=== PATIENT | female | born 2000 | race Caucasian/White ===

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

== ENCOUNTER 2021-09-24 11:10 | Outpatient (CLI) | payer MEDICAID, OTHER ==
[2021-09-24 11:33] VITALS: BP 96/54
[2021-09-24] MEDS ORDERED: LACTATED RINGERS 500 ML IV ONE (12:00)
[2021-09-24 12:52] LABS: Bacteria,Urine 3+ /HPF (Negative); Bilirubin,Urine NEG (Negative); Blood,Urine NEG (Negative); Color,Urine Yellow (Yellow); Mucus,Urine 1+ /HPF; Protein,Urine <15 mg/dL mg/dL (Negative); Urobilinogen,Urine < 2.0 mg/dL (<2.0)
[2021-09-24] MEDS ORDERED: ACETAMINOPHEN 325 MG TAB ONE (13:32)
[2021-09-24] MEDS ORDERED: ACETAMINOPHEN 325 MG/10.15 ML ORAL LIQD UNIT DOSE PO NR (14:00)
== END 2021-09-24 13:53 | disposition home or self-care (01) ==
LOC: TRG 11:10 → APU 11:11 → TRG 13:53
PROVIDERS: ATTEND Obstetrics & Gynecology
DX: Z34.93 Encounter for supervision of normal pregnancy, unspecified, third trimester (principal); Z3A.30 30 weeks gestation of pregnancy
CPT/HCPCS: 59025; 81001

== ENCOUNTER 2021-10-02 13:32 | Outpatient (CLI) | payer SELFPAY ==
[2021-10-02 13:56] VITALS: BP 105/62
[2021-10-02] MEDS ORDERED: LACTATED RINGERS 500 ML IV ONE (14:08)
[2021-10-02 15:06] LABS: Bacteria,Urine 4+ /HPF (Negative); Mucus,Urine 2+ /HPF
[2021-10-02 15:08] LABS: Color,Urine Straw (Yellow)
[2021-10-02 15:11] LABS: Bilirubin,Urine Negative (Negative); Blood,Urine Negative (Negative)
[2021-10-02 15:12] LABS: Urobilinogen,Urine < 2.0 mg/dL (<2.0)
--- NOTE | 2021-10-02 16:05 | Ultrasound Report ---
ULTRASOUND BIOPHYSICAL PROFILE INDICATION: DECREASED MOVEMENT, BACK PAIN. SCORE 7.. COMPARISON: None available. FINDINGS: breathing movement = 2 Gross body movement = 2 tone = 2 Qualitative amniotic fluid volume = 2 Total biophysical score = 02/17 Amniotic fluid index is 13.8 cm. Presentation is Cephalic. heart rate is 125 beats per minute. IMPRESSION: biophysical profile = 02/17 Signer Name: Trevin Crandall MD Signed: 10/02/2021 4:00 PM Workstation Name: [id number]
[2021-10-02] MEDS ORDERED: LIDOCAINE-MPF (1%) 10 MG/1 ML VIAL 5 ML INFILTRATI ONE (17:00)
== END 2021-10-02 17:07 | disposition home or self-care (01) ==
LOC: TRG 13:32 → APU 13:34 → TRG 17:07
PROVIDERS: ATTEND Obstetrics & Gynecology
DX: O36.8130 Decreased fetal movements, third trimester, not applicable or unspecified (principal); Z3A.31 31 weeks gestation of pregnancy
CPT/HCPCS: 59025; 76815; 76819; 81001; 87086; J0696

== ENCOUNTER 2021-10-08 14:11 | Outpatient (CLI) | payer SELFPAY ==
[2021-10-08] MEDS ORDERED: LACTATED RINGERS 1,000 ML IV ONE (14:30)
[2021-10-08 14:40] VITALS: BP 109/62
[2021-10-08 15:06] LABS: Bacteria,Urine 3+ /HPF (Negative); Bilirubin,Urine NEG (Negative); Blood,Urine NEG (Negative); Color,Urine Yellow (Yellow); Mucus,Urine 2+ /HPF; Urobilinogen,Urine < 2.0 mg/dL (<2.0)
== END 2021-10-08 17:34 | disposition home or self-care (01) ==
LOC: TRG 14:11 → APU 14:11 → TRG 17:34
PROVIDERS: ATTEND Obstetrics & Gynecology
DX: Z34.93 Encounter for supervision of normal pregnancy, unspecified, third trimester (principal); Z3A.32 32 weeks gestation of pregnancy
CPT/HCPCS: 59025; 81001; 87086; 96360; 96365; J0690; J7120

== ENCOUNTER 2021-11-02 19:20 | Outpatient (CLI) | payer SELFPAY ==
[2021-11-02] MEDS ORDERED: LACTATED RINGERS 500 ML IV ONE (19:38)
[2021-11-02 19:54] VITALS: BP 101/58
[2021-11-02] MEDS ORDERED: LACTATED RINGERS 1,000 ML IV ONE (20:16)
[2021-11-02 20:38] LABS: Bacteria,Urine 1+ /HPF (Negative); Bilirubin,Urine NEG (Negative); Blood,Urine NEG (Negative); Color,Urine Yellow (Yellow); Mucus,Urine 3+ /HPF; Urobilinogen,Urine < 2.0 mg/dL (<2.0)
== END 2021-11-02 21:12 | disposition home or self-care (01) ==
LOC: TRG 19:20 → APU 19:20 → TRG 21:12
PROVIDERS: ATTEND Obstetrics & Gynecology
DX: O26.893 Other specified pregnancy related conditions, third trimester (principal); Z3A.36 36 weeks gestation of pregnancy; R10.9 Unspecified abdominal pain
CPT/HCPCS: 59025; 81001

== ENCOUNTER 2021-11-17 12:02 | Outpatient (CLI) | payer SELFPAY ==
[2021-11-17 12:35] VITALS: BP 105/65
--- NOTE | 2021-11-17 17:09 | Ultrasound Report ---
US OB limited, US OB BPP wo non-stress INDICATION: YEFRI. TECHNIQUE: Transabdominal. COMPARISON: None available. FINDINGS: There is a single intrauterine . Heart Rate: 132 beats per minute. Position: cephalic. Amniotic Fluid Volume: normal Amniotic Fluid Index (YERFI) in cm (if calculated): 7.3. Biophysical Profile: breathing movements: 0 movements:2 posture and tone:2 Qualitative amniotic fluid volume: 2 IMPRESSION: 1. Amniotic fluid is normal. 2. Biophysical profile . Signer Name: Boris Gardiner MD Signed: 11/17/2021 5:05 PM Workstation Name: [id number]
--- NOTE | 2021-11-17 17:09 | Ultrasound Report ---
US OB limited, US OB BPP wo non-stress INDICATION: YEFRI. TECHNIQUE: Transabdominal. COMPARISON: None available. FINDINGS: There is a single intrauterine . Heart Rate: 132 beats per minute. Position: cephalic. Amniotic Fluid Volume: normal Amniotic Fluid Index (YEFRI) in cm (if calculated): 7.3. Biophysical Profile: breathing movements: 0 movements:2 posture and tone:2 Qualitative amniotic fluid volume: 2 IMPRESSION: 1. Amniotic fluid is normal. 2. Biophysical profile . Signer Name: Boris Gardiner MD Signed: 11/17/2021 5:05 PM Workstation Name: [id number]
== END 2021-11-17 17:33 | disposition home or self-care (01) ==
LOC: APU 12:02 → TRG 12:02
PROVIDERS: ATTEND Obstetrics & Gynecology
DX: Z34.93 Encounter for supervision of normal pregnancy, unspecified, third trimester (principal); Z3A.38 38 weeks gestation of pregnancy
CPT/HCPCS: 36415; 59025; 76815; 76819; 84112

== ENCOUNTER 2021-11-20 08:38 | Outpatient (CLI) | payer SELFPAY ==
[2021-11-20 09:12] VITALS: BP 103/63
[2021-11-20 10:28] LABS: Bilirubin,Urine NEG (Negative); Blood,Urine SM (Negative); Color,Urine Yellow (Yellow); Mucus,Urine 1+ /HPF; Protein,Urine <15 mg/dL mg/dL (Negative); Urobilinogen,Urine < 2.0 mg/dL (<2.0)
--- NOTE | 2021-11-20 10:28 | Ultrasound Report ---
ULTRASOUND BIOPHYSICAL PROFILE ULTRASOUND OB LIMITED INDICATION: well being TECHNIQUE: Transabdominal ultrasound imaging. COMPARISON: 11/17/2021 FINDINGS: breathing movement = 2 Gross body movement = 2 tone = 2 Qualitative amniotic fluid volume = 2 Total biophysical score = 8/8 Amniotic fluid index is 8.1 cm. Presentation is cephalic. heart rate is 133 beats per minute. IMPRESSION: biophysical profile equals /8. Signer Name: Destin Knott Jr, MD Signed: 11/20/2021 10:24 AM Workstation Name: [id number]
== END 2021-11-20 10:39 | disposition home or self-care (01) ==
LOC: TRG 08:38 → APU 08:41 → TRG 10:39
PROVIDERS: ATTEND Obstetrics & Gynecology
DX: Z34.93 Encounter for supervision of normal pregnancy, unspecified, third trimester (principal); Z3A.38 38 weeks gestation of pregnancy
CPT/HCPCS: 76815; 76819; 81001; 87086

== ENCOUNTER 2021-11-23 23:29 | Inpatient (IN) | payer SELFPAY ==
[2021-11-24] MEDS ORDERED: LACTATED RINGERS 1,000 ML ONE (00:59)
[2021-11-24] MEDS ORDERED: LIDOCAINE (2%) 20 MG/1 ML VIAL 20 ML MDV INFILTRATI ONE ×2 (02:22→05:29)
[2021-11-24] MEDS ORDERED: MINERAL OIL 30 ML ORAL LIQD PO PRN ×2 (02:22→05:29)
[2021-11-24] MEDS ORDERED: CARBOPROST TROMETHAMINE 250 MCG/1 ML INJ IM PRN ×2 (02:22→05:29)
[2021-11-24] MEDS ORDERED: TERBUTALINE 1 MG/1 ML INJ SUB-Q PRN ×2 (02:22→05:29)
[2021-11-24] MEDS ORDERED: METHYLERGONOVINE MALEATE 0.2 MG/ML VIAL IM PRN ×2 (02:22→05:29)
[2021-11-24] MEDS ORDERED: miSOPROStol 200 MCG TAB PR PRN ×2 (02:22→05:29)
[2021-11-24] MEDS ORDERED: LOPERAMIDE 2 MG CAP PO PRN ×2 (02:22→05:29)
[2021-11-24] MEDS ORDERED: OXYTOCIN 10 UNIT/1 ML INJ IM PRN ×2 (02:22→05:29)
[2021-11-24] MEDS ORDERED: ePHEDrine SULFATE 50 MG/1 ML INJ IV PRN ×2 (02:22→09:06)
[2021-11-24] MEDS ORDERED: OXYTOCIN DRIP 30 UNITS/500 ML BAG IV SCH ×2 (03:00→06:00)
[2021-11-24 03:12] LABS: Hematocrit 35.1 % (30.3-42.9); Hemoglobin 10.9 gm/dl (10.1-14.3); Mean Corpuscular HGB Conc 31 % (30-34); Mean Corpuscular Volume 89 fl (79-97); Platelet Count 267 K/mm3 (140-440); Red Blood Count 3.95 M/mm3 (3.65-5.03); Red Cell Distribution Width 16.7 % (13.2-15.2)
[2021-11-24] MEDS: LACTATED RINGERS 1,000 ML IV SCH ×2 (03:30→11:05)
[2021-11-24] MEDS ORDERED: ACETAMINOPHEN 325 MG TAB PO PRN (05:29)
[2021-11-24] MEDS ORDERED: BUTORPHANOL 2 MG/1 ML INJ IV PRN ×2 (05:29→08:35)
[2021-11-24] MEDS ORDERED: LACTATED RINGERS 1,000 ML IV SCH (05:30)
[2021-11-24] MEDS: fentaNYL 100 MCG/2 ML INJ IV PRN ×2 (05:44→08:05)
[2021-11-24 05:58] LABS: Basophils % (Manual) 0 % (0.0-1.8); Total Cells Counted 100
[2021-11-24 05:59] LABS: Platelet Estimate Consistent w Auto; RBC Morphology Normal
--- NOTE | 2021-11-24 08:29 | History and Physical Report ---
History of Present Illness Date of examination: 11/24/21 Date of admission: 11/23/21 23:48 Chief complaint: Labor History of present illness: 21 year old was admitted in active labor. Patient reports leaking of clear fluid from vagina since shortly before midnight last night. Patient received care at [facility] and records are available. LMP 02/22/21. EDC 11/29/21. significant for the following: late transfer of care to [facility] at 33 weeks, UTI (treated). labs are as follows: O+, antibody screen negative, rubella immune, hepatitis B surface antigen negative, HIV negative, RPR negative, gonorrhea negative, chlamydia negative, trichomonas negative, AFP negative, 1 hour sugar test 73, GBS negative. Past History Past Medical History: other (asthma, anemia) Past Surgical History: no surgical history [facility] History: denies: chlamydia, gonorrhea, hepatitis B, hepatitis C, HIV, syphilis, trichomonas Family/Genetic History: hypertension Social history: no significant social history, full code - Obstetrical History Expected Date of Delivery: 11/29/21 Actual Gestation: 39 Week(s) 2 Day(s) : 1 Para: 0 Hx # Term Pregnancies: 0 Number of Pregnancies: 0 Spontaneous Abortions: 0 Induced : 0 Number of Living Children: 0 Medications and Allergies Allergies Allergy/AdvReac Type Severity Reaction Status Date / Time albuterol Allergy Severe Anaphylaxis Verified 11/24/21 01:02 Home Medications Medication Instructions Recorded Confirmed Last Taken Type Ibuprofen [Motrin] 600 mg PO Q8H PRN #20 tablet 08/18/18 Unknown Rx Active Meds: Active Medications Acetaminophen (Acetaminophen 325 Mg Tab) 650 mg PO Q4H PRN PRN Reason: Pain, Mild (1-3) Butorphanol Tartrate (Butorphanol 2 Mg/1 Ml Inj) 1 mg IV Q2H PRN PRN Reason: Pain, Moderate(4-6) LABOR PAIN Carboprost Tromethamine (Carboprost Tromethamine 250 Mcg/1 Ml Inj) 250 mcg IM ONCE PRN PRN Reason: Uterine Bleeding Carboprost Tromethamine (Carboprost Tromethamine 250 Mcg/1 Ml Inj) 250 mcg IM ONCE PRN PRN Reason: Uterine Bleeding Ephedrine Sulfate (Ephedrine Sulfate 50 Mg/1 Ml Inj) 10 mg IV Q2M PRN PRN Reason: Hypotension Fentanyl (Fentanyl 100 Mcg/2 Ml Inj) 100 mcg IV Q2H PRN PRN Reason: Pain,Severe (7-10) LABOR PAIN Last Admin: 11/24/21 08:05 Dose: 100 mcg Oxytocin/Sodium Chloride (Pitocin/Ns 30 Unit/500ml) 30 units in 500 mls @ 2 mls/hr IV TITR AGY; Protocol Last Titration: 11/24/21 08:20 Dose: 6 mls/hr, 6 mls/hr Lactated Ringer's (Lactated Ringers) 1,000 mls @ 125 mls/hr IV DIRECT GAY Last Admin: 11/24/21 03:30 Dose: 125 mls/hr Oxytocin/Sodium Chloride (Pitocin/Ns 30 Unit/500ml) 30 units in 500 mls @ 2 mls/hr IV TITR GAY; Protocol Lactated Ringer's (Lactated Ringers) 1,000 mls @ 125 mls/hr IV DIRECT GAY Loperamide HCl (Loperamide 2 Mg Cap) 2 mg PO ONCE PRN PRN Reason: give with Hemabate Methylergonovine Maleate (Methylergonovine Maleate 0.2 Mg/Ml Vial) 0.2 mg IM ONCE PRN PRN Reason: Uterine Bleeding Mineral Oil (Mineral Oil 30 Ml Oral Liqd) 30 ml PO QHS PRN PRN Reason: Constipation Misoprostol (Misoprostol 200 Mcg Tab) 800 mcg VT ONCE PRN PRN Reason: Uterine Bleeding Oxytocin (Oxytocin 10 Unit/1 Ml Inj) 10 unit IM ONCE PRN PRN Reason: Uterine Bleeding Terbutaline Sulfate (Terbutaline 1 Mg/1 Ml Inj) 0.25 mg SUB-Q ONCE PRN PRN Reason: Hyperstimulation/Hypertonicity Review of Systems All systems: negative (leaking of fluid, contractions) - Vital Signs Vital signs: Vital Signs Pulse Pulse Ox 84 98 11/23/21 23:46 11/23/21 23:46 Temp Pulse Resp BP Pulse Ox 97.8 F 82 16 129/77 97 11/24/21 07:07 11/24/21 08:20 11/24/21 08:05 11/24/21 07:50 11/24/21 08:20 - Physical Exam Abdomen: Positive: normal appearance, soft. Negative: distention, tenderness, guarding, rigidity Genitourinary (Female): Positive: normal external genitalia, normal perenium. Negative: perineal/vulvar lesions Vagina: Positive: other (clear fluid seen leaking from vagina) Uterus: Positive: enlarged. Negative: tender Anus/Rectum: Positive: normal perianal skin - Obstetrical Uterine Contraction Monitor Mode: External Cervical Dilatation: 4 Cervical Effacement Percentage: 90 station: -3 Uterine Contraction Pattern: Regular Uterine Contraction Intensity: Moderate Results Result Diagrams: 11/24/21 01:00 Abnormal lab results 11/24/21 11/24/21 Range/Units 00:12 01:00 WBC 12.0 H (4.5-11.0) K/mm3 RDW 16.7 H (13.2-15.2) % Seg Neuts % (Manual) 71.0 H (40.0-70.0) % Eosinophils % (Manual) 6.0 H (0.0-4.3) % Seg Neutrophils # Man 8.5 H (1.8-7.7) K/mm3 Eosinophils # (Manual) 0.7 H (0.0-0.4) K/mm3 Membranes Rupture Positive A (Negative) All other labs normal. Assessment and Plan A: at 39 weeks, 2 days gestation. Active labor. SROM. GBS negative. P: Continuous EFM. Pitocin augmentation of labor.
[2021-11-24] MEDS ORDERED: NALOXONE 2 MG/2 ML INJ IV PRN (09:06)
--- NOTE | 2021-11-24 09:07 | Anesthesia Consultation ---
Anesthesia Consult and Med Hx Date of service: 11/24/21 - Airway Anesthetic Teeth Evaluation: Good ROM Head & Neck: Adequate Mental/Hyoid Distance: Adequate Mallampati Class: Class II Intubation Access Assessment: Probably Good - Pulmonary Exam CTA: Yes - Cardiac Exam Cardiac Exam: RRR - Pre-Operative Health Status ASA Pre-Surgery Classification: ASA3 Proposed Anesthetic Plan: Epidural - Pulmonary Hx Asthma: Yes - Cardiovascular System Hx Hypertension: No - Central Nervous System Hx Seizures: No Hx Psychiatric Problems: No - Endocrine Hx Renal Disease: No Hx Hypothyroidism: No Hx Hyperthyroidism: No - Hematic Hx Anemia: Yes Hx Sickle Cell Disease: No - Other Systems Hx Alcohol Use: No Hx Obesity: Yes
--- NOTE | 2021-11-24 09:27 | Progress Note ---
Labor Epidural - Labor Epidural Start Time: 09:15 Stop Time: :19 Performed by:: ANGELIQUE STANFORD Procedure: Patient is requesting epidural for labor pain. H&P, and labs reviewed. Procedure explained, questions answered, consent obtained. Patient in sitting position with blood pressure cuff and pulse ox on and working. Timeout performed immediately before start of procedure. Sterile Chloraprep prep/drape. Lidocaine skin wheal at L[3]-L[4]. 17-gauge tuohy epidural needle advanced to [id number] with saline at [7] cm. 25-gauge spinal needle advanced until clear, free-flowing CSF. Intrathecal dexmedetomidine [5] mcg administered and needle removed. Epidural catheter advanced to [12] cm, negative aspiration for blood and csf, negative test dose 3 ml 1.5% lidocaine with epinephrine. Sterile sponge and tegaderm applied, followed by tape reinforcement. Patient tolerated procedure well.
[2021-11-24] MEDS: ePHEDrine SULFATE 50 MG/1 ML INJ IV PRN ×2 (09:38→10:32)
[2021-11-24] MEDS ORDERED: fentaNYL-BUPIV 2 MCG/ML-0.125% 200 MCG/100 ML BAG EPIDURAL SCH (10:00)
[2021-11-24] MEDS ORDERED: WITCH HAZEL/ GLYCERIN PAD TP PRN (15:02)
[2021-11-24] MEDS ORDERED: BENZOCAINE/MENTHOL 20/0.5% TOP SPRAY 56 GM TP PRN (15:02)
[2021-11-24] MEDS ORDERED: MAGNESIUM HYDROXIDE (MOM) ORAL LIQD UDC PO PRN (15:02)
[2021-11-24] MEDS ORDERED: LANOLIN/ZINC/DIMETHICONE (LANSINOH) 7 GM TP PRN ×2 (15:02)
[2021-11-24] MEDS ORDERED: HYDROcodone/ACETAMINOPHEN 5-325 MG TAB PO PRN (15:02)
--- NOTE | 2021-11-24 15:13 | Procedure Note ---
OB Delivery Note - Delivery Date of Delivery: 11/24/21 Surgeon: LAZARUS HENLEY Estimated blood loss: 100cc - Vaginal Delivery presentation: vertex Delivery position: OA Intrapartum events: none Delivery augmentation: pitocin Delivery monitor: external FHT, external uterine Route of delivery: Delivery placenta: spontaneous Delivery cord: 3 umbilical vessels, other (short cord) Delivery laceration: 1st degree Delivery repair: vicryl Anesthesia: epidural Delivery comments: Spontaneous vaginal delivery at 14:24 of liveborn female infant weighing 5 lb. 12 oz. over intact perineum with apgars of 8/9. Epidural anesthesia. was atraumatic; short umbilical cord. Baby was placed on mom's chest immediately after . Spontaneous cry and respirations. Baby suctioned with bulb syringe and dried with warm blankets. 3 vessel cord double clamped and cut; delayed cord clamping. Cord blood obtained. Spontaneous delivery of intact placenta and membr anes at 14:27. Pitocin to IV fluids after delivery of placenta. EBL 100 cc. First degree right labial laceration repaired with 3-0 vicryl. No other lacerations noted. Vaginal sweep negative. Sponge count correct. Mother and baby stable in birthing room.
[2021-11-24] MEDS ORDERED: FERROUS SULFATE 325 MG TAB PO SCH (22:00)
[2021-11-24] MEDS: DOCUSATE SODIUM 100 MG CAP PO SCH (22:18)
[2021-11-24] MEDS: IBUPROFEN 600 MG TAB PO SCH (22:18)
[2021-11-25 04:34] LABS: Hemoglobin 9.6 gm/dl (10.1-14.3)
[2021-11-25] MEDS: IBUPROFEN 600 MG TAB PO SCH ×2 (04:52→13:03)
--- NOTE | 2021-11-25 09:17 | Discharge Summary ---
Providers - Providers Date of Admission: 11/23/21 23:48 Date of discharge: 11/25/21 Attending physician: JOSE BLACK Primary care physician: JOSE BLACK Hospitalization Reason for admission: active labor Delivery: Episiotomy: none Laceration: none Other procedures: none complications: none Discharge diagnosis: IUP at term delivered [place] baby: female Hospital course: Pt presented to [facility] in active labor. She had a w/o pp complications. See H&P, delivery summary, and pp notes. Condition at discharge: Good Disposition: 01 HOME / SELF CARE / HOMELESS Plan - Discharge Medications Prescriptions: Ferrous Sulfate [Feosol 325 MG tab] 325 mg PO QDAY #90 tablet Ibuprofen [Motrin 600 MG tab] 600 mg PO Q8H PRN #20 tablet PRN Reason: Pain - Provider Discharge Summary Additional instructions: [] Smoking cessation referral if applicable(refer to patient education folder for contact #) [] Refer to [facility]'s [facility] Booklet Call your doctor immediately for: * Fever > 100.5 * Heavy vaginal bleeding ( >1 pad per hour) * Severe persistent headache * Shortness of breath * Reddened, hot, painful area to leg or breast * Drainage or odor from incision. * Keep incision clean and dry at all times and follow doctor's instructions regarding bathing/showering - Follow up plan Follow up: JOSE BLACK MD [Primary Care Provider] - 6 Weeks
--- NOTE | 2021-11-25 09:19 | Progress Note ---
Assessment and Plan A: S/P Asymptomatic anemia P: D/c home per pt request Subjective - Subjective Date of service: 11/25/21 Principal diagnosis: s/p Patient reports: appetite normal, voiding normally, pain well controlled, ambul ating normally : doing well, bottle feeding Objective - Vital Signs Latest vital signs: Vital Signs Temp Pulse Resp BP Pulse Ox Pulse Ox 11/25/21 01:17 97.8 F 61 16 110/61 98 11/24/21 21:34 97.9 F 89 16 116/77 98 11/24/21 21:22 97 11/24/21 17:00 98 11/24/21 16:54 98.2 F 96 H 14 113/59 96 11/24/21 15:49 16 11/24/21 15:48 78 98 11/24/21 15:47 80 114/65 11/24/21 15:44 98.2 F 11/24/21 15:43 84 98 11/24/21 15:38 85 98 11/24/21 15:33 83 97 11/24/21 15:32 85 115/67 11/24/21 15:28 91 H 98 11/24/21 15:23 89 98 11/24/21 15:18 90 98 11/24/21 15:17 90 124/75 11/24/21 15:13 96 H 97 11/24/21 15:08 89 98 11/24/21 15:03 100 H 99 11/24/21 14:58 103 H 98 11/24/21 14:53 91 H 99 11/24/21 14:48 103 H 97 11/24/21 14:46 93 H 114/56 11/24/21 14:43 91 H 99 11/24/21 14:38 86 99 11/24/21 14:34 93 H 112/55 11/24/21 14:33 86 99 11/24/21 14:28 102 H 99 11/24/21 14:23 142 H 99 11/24/21 14:18 78 100 11/24/21 14:17 73 94 11/24/21 14:13 82 99 11/24/21 14:08 116 H 100 11/24/21 14:04 116 H 97/63 11/24/21 14:03 116 H 98 11/24/21 13:58 86 99 05 13:53 83 99 05 13:48 91 H 99 11/24/21 13:43 79 98 05 13:38 85 98 05 13:35 85 100/64 05 13:33 88 98 05 13:28 108 H 98 11/24/21 13:23 94 H 97 11/24/21 13:18 101 H 97 11/24/21 13:13 89 98 11/24/21 13:08 97 H 98 05 13:04 82 93/54 05 13:03 82 97 11/24/21 13:02 98.4 F 11/24/21 12:58 80 97 11/24/21 12:53 81 98 11/24/21 12:48 71 98 11/24/21 12:43 77 98 11/24/21 12:38 72 97 11/24/21 12:33 78 93/55 97 11/24/21 12:28 74 98 11/24/21 12:23 77 97 05 12:18 66 98 05 12:13 72 98 05 12:08 71 98 11/24/21 12:03 71 95/54 98 05 11:58 72 98 11/24/21 11:53 71 98 05 11:48 69 98 11/24/21 11:43 70 98 11/24/21 11:38 71 98 11/24/21 11:33 74 92/50 98 05 11:28 69 97 11/24/21 11:23 72 97 05 11:18 76 96 05 11:15 98.4 F 11/24/21 11:13 77 97 05 11:08 79 97 05 11:03 88 91/55 96 05 10:58 71 96 05 10:53 75 96 05 10:48 75 96 05 10:43 85 96 05 10:38 76 96 05 10:33 85 96 05 10:32 103 H 88/50 05 10:30 80 85/49 05 10:29 76 94 05/15 10:28 91 H 75/42 95 0515 10:26 78 84/48 0515 10:24 82 78/46 94 05 10:23 82 95 05 10:22 85 76/46 05 10:20 85 82/48 0515 10:18 90 74/41 95 0515 10:16 81 85/52 05 10:14 83 78/47 05 10:13 86 95 05 10:12 89 75/43 05 10:10 87 81/49 05 10:08 89 78/46 95 05 10:07 88 94 05 10:06 81 89/50 05 10:04 86 81/50 05 10:03 88 95 05 10:02 89 83/52 05 10:00 89 87/54 05 09:58 90 84/53 96 11/24/21 09:56 91 H 86/53 05 09:54 84 91/51 05 09:53 93 H 96 11/24/21 09:52 88 88/54 05 09:50 85 91/55 05 09:48 77 97/57 98 05 09:46 78 99/55 05 09:45 85 103/53 05 09:43 89 98 05 09:38 70 98/58 98 05 09:37 65 94 05 09:36 74 93/50 05 09:34 64 90/51 05 09:33 73 97 0515 09:32 80 86/51 05 09:30 83 90/55 05 09:28 89 96/53 97 11/24/21 09:26 75 99/52 0515 09:24 73 106/58 05 09:23 76 100 0515 09:22 67 112/56 05 09:21 67 114/52 Intake and Output 11/24/21 11/25/21 11/25/21 22:59 06:59 14:59 Intake Total 240 360 Output Total 200 300 Balance 40 60 Intake: Oral 120 Intake, Free Water 120 360 Output: Urine 200 300 Void 200 300 Other: Total, Intake Amount 120 Total, Output Amount 200 300 # Voids Void 1 - Exam Breasts: Present: normal Abdomen: Present: normal appearance, soft, normal bowel sounds Vulva: both: normal Uterus: Present: normal, firm, fundal height below umbilicus Extremities: Present: normal - Labs Labs: Abnormal lab results 11/25/21 Range/Units 03:59 Hgb 9.6 L (10.1-14.3) gm/dl Hct 30.0 L (30.3-42.9) %
[2021-11-25] MEDS ORDERED: FERROUS SULFATE 325 MG TAB PO SCH (10:00)
--- NOTE | 2021-11-25 10:08 | Post Anesthesia Evaluation ---
- Post Anesthesia Evaluation Patient Participated: Yes Airway Patent: Yes Stable Respiratory Function: Yes Nausea/Vomiting: No Temp > 96.8F: Yes Pain Manageable: Yes Adequeate Hydration: Yes Anesthesia Complications: No Block Receding Appropriately: Yes Patient on Ventilator: No
[2021-11-25] MEDS: DOCUSATE SODIUM 100 MG CAP PO SCH (13:03)
[2021-11-25 18:58] VITALS: BP 119/70
== END 2021-11-25 18:33 | disposition home or self-care (01) | DRG 807 ==
LOC: TRG 23:29 → APU 23:30 → TRG 23:48 → OBSVTOIN 23:48 → LD 23:48 → OB 11-24 16:49
PROVIDERS: ADMIT Obstetrics & Gynecology; ATTEND Obstetrics & Gynecology
PROC: 10E0XZZ Delivery of Products of Conception, External Approach (ICD-10-PCS; principal; 2021-11-24)
PROC: 0HQ9XZZ Repair Perineum Skin, External Approach (ICD-10-PCS; 2021-11-24)
PROC: 3E0R3BZ Introduction of Anesthetic Agent into Spinal Canal, Percutaneous Approach (ICD-10-PCS; 2021-11-24)
PROC: 00HU33Z Insertion of Infusion Device into Spinal Canal, Percutaneous Approach (ICD-10-PCS; 2021-11-24)
DX: O99.214 Obesity complicating childbirth (principal); Z37.0 Single live birth; Z3A.39 39 weeks gestation of pregnancy; Z20.822 Contact with and (suspected) exposure to COVID-19; O70.0 First degree perineal laceration during delivery; O90.81 Anemia of the puerperium
CPT/HCPCS: 36415; 59025; 84112; 85007; 85014; 85018; 85025; 86850; 86900; 86901; 96360; G0378; J3490; J2590; J3010; J7120; U0003